=== PATIENT | male | born 1985 | race African-American/Black ===

== ENCOUNTER 2018-02-22 18:45 | Emergency (ER) | payer BC ==
[~2018-02-22] VITALS: Ht 177.8 cm; Wt 87.9 kg
[2018-02-22 19:56] LABS: HEMATOCRIT 42.2 % (38.0-50.0); HEMOGLOBIN 14.6 G/DL (12.5-16.6); MCH 32.3 PG (29.0-34.0); MCHC 34.6 G/DL (30.0-36.0); MCV 93.4 FL (86-99); RBC DIS.WIDTH-CV 12.7 % (11.8-14.6); RBC DIS.WIDTH-SD 43.7 % (39-53); RED BLOOD COUNT 4.52 M/uL (4.00-5.50); WHITE BLOOD COUNT 9.7 K/uL (4.1-10.2)
[2018-02-22 20:13] LABS: CHLORIDE 105 mEq/L (99-109); POTASSIUM 3.8 mEq/L (3.7-5.4); SODIUM 140 mEq/L (136-147)
[2018-02-22 20:15] LABS: GLUCOSE 79 mg/dL (70-99)
[2018-02-22 20:19] LABS: CREATININE 1.1 mg/dL (0.6-1.3); GFR ESTIMATE (CALCULATED) > 59 mL/min/ (58.99-99999)
[2018-02-22 20:20] LABS: UREA NITROGEN (BUN) 11 mg/dL (9-23)
[2018-02-22 20:26] LABS: TROP-I INTERPRETATION NEGATIVE; TROPONIN-I < 0.01 ng/mL (0.0-0.30)
[2018-02-22 20:40] LABS: PLAT.SUFFICIENCY ADEQUATE; PLATELET COUNT 220 K/uL (156-360)
[2018-02-22 21:38] VITALS: BP 124/67
== END 2018-02-22 21:38 | disposition left against medical advice (07) ==
LOC: EME 18:45
DX: R07.9 Chest pain, unspecified (principal); Z53.21 Procedure and treatment not carried out due to patient leaving prior to being seen by health care provider
CPT/HCPCS: 71046; 80048; 84484; 85027; 93005